=== PATIENT | female | born 1955 | race Hispanic/Latino ===

== ENCOUNTER 2016-10-08 11:44 | Emergency (ER) | payer OTHER ==
[~2016-10-08] VITALS: Ht 157.5 cm; Wt 73.4 kg
[~2016-10-08 11:44] MED LIST: MAGIC MOUTHWASH1 ML MM; MOTRIN600 MG PO
[2016-10-08] MEDS ORDERED: THYROID PO (13:51)
[2016-10-08] MEDS ORDERED: FLEXERIL5 MG PO (14:15)
[2016-10-08] MEDS ORDERED: PREDNISONE10 MG PO (14:15)
[2016-10-08 14:59] VITALS: BP 140/68
== END 2016-10-08 15:00 | disposition home or self-care (01) ==
LOC: EME 11:44
DX: M54.16 Radiculopathy, lumbar region (principal); M79.604 Pain in right leg; M79.605 Pain in left leg
CPT/HCPCS: 99281; 99284; J1885